=== PATIENT | female | born 1955 | race Caucasian/White ===

== ENCOUNTER 2018-02-18 11:59 | Emergency (ER) | payer OTHER ==
[~2018-02-18] VITALS: Ht 165.1 cm; Wt 80.5 kg
[2018-02-18 12:03] VITALS: BP 145/100
== END 2018-02-18 13:40 | disposition home or self-care (01) ==
LOC: ED 13:34
DX: J20.8 Acute bronchitis due to other specified organisms (principal); B97.89 Other viral agents as the cause of diseases classified elsewhere; Z87.891 Personal history of nicotine dependence
CPT/HCPCS: 93005; 99283